=== PATIENT | female | born 1935 | race African-American/Black ===

== ENCOUNTER → 2018-08-17 | Outpatient (CLI) | payer MEDICARE, OTHER ==
[~2018-08-17] MED LIST: ATEN50TA PO; BP MED; CARI350 PO; IBUP-2275 PO; METF500T
== END | disposition home or self-care (01) ==
LOC: RADPV 11:47
PROVIDERS: ATTEND Legal Medicine
DX: M50.322 Other cervical disc degeneration at C5-C6 level (principal); M46.02 Spinal enthesopathy, cervical region; M43.02 Spondylolysis, cervical region; M51.36 Other intervertebral disc degeneration, lumbar region; M46.06 Spinal enthesopathy, lumbar region; M41.84 Other forms of scoliosis, thoracic region; M46.04 Spinal enthesopathy, thoracic region; I10 Essential (primary) hypertension
CPT/HCPCS: 72040; 72070; 72100